=== PATIENT | female | born 1975 | race African-American/Black ===

== ENCOUNTER 2016-07-02 07:10 | Emergency (ER) | payer OTHER ==
[~2016-07-02] VITALS: Ht 165.1 cm; Wt 92.1 kg
[~2016-07-02 07:10] MED LIST: ATIVAN0.5 MG PO; TEMAZEPAM30 M1 PO; TENORMIN25 MG PO
[2016-07-02 07:28] VITALS: BP 133/78
--- NOTE | 2016-07-02 07:46 | NUR ---
40/F TO ED WITH C/O SOB AND CHEST PRESSURE STARTING LAST NIGHT. PT STATES SHE FEELS LIKE SHE CANT CATCH HER BREATH. LUNGS CLEAR BILAT. HR EVEN AND REGULAR. AAOX4. VSS. NO SIGNS OF DISTRESS.
[2016-07-02 08:24] VITALS: BP 129/77
== END 2016-07-02 08:23 | disposition home or self-care (01) ==
LOC: MED 07:10
DX: F41.9 Anxiety disorder, unspecified (principal); R07.9 Chest pain, unspecified; R06.02 Shortness of breath

== ENCOUNTER 2016-07-29 14:14 | Emergency (ER) | payer OTHER ==
[~2016-07-29] VITALS: Ht 165.1 cm; Wt 92.1 kg
[2016-07-29 14:26] VITALS: BP 126/79
--- NOTE | 2016-07-29 15:02 | NUR ---
patient taken to room #3
--- NOTE | 2016-07-29 15:10 | NUR ---
PT PRESENTS TO ER W/C/O DIARRHEA AND DARK COLORED STOOL SINCE LAST NOC. HX MIGRAINES, FIBROMYALGIA, ANXIETY, ULCERS, S/P GASTRIC BYPASS IN 2006. DENIES VOMITTING; SKIN IS PINK/WARM/DRY; AAOX4 WITH EVEN AND STEADY GAIT; LUNGS CLEAR BL; HR EVEN AND REGULAR; PT DENIES ANY FEVER, CP, SOB, OR COUGH AT THIS TIME; PATIENT STATES PAIN OF 9/10 AT THIS TIME; VSS; PATIENT POSITIONED FOR COMFORT; HOB ELEVATED; BEDRAILS UP X2; BED DOWN. ER MD MADE AWARE OF PT STATUS.
[2016-07-29] MEDS ORDERED: NACL 0.9% 1,000 ML IV ONE (15:20)
[2016-07-29] MEDS ORDERED: ONDANSETRON 4 MG/2 ML VIAL IVP ONE (15:20)
[2016-07-29] MEDS ORDERED: traMADol 50 MG TAB PO ONE (15:20)
[2016-07-29] MEDS ORDERED: fentaNYL 0.05 MG/ML VIAL IVP ONE (16:30)
[2016-07-29 16:57] VITALS: BP 121/71
--- NOTE | 2016-07-29 17:01 | NUR ---
Patient discharged with v/s stable. Written and verbal after care instructions given and explained. Patient alert, oriented and verbalized understanding of instructions. Ambulatory with steady gait. All questions addressed prior to discharge. ID band removed. Patient advised to follow up with PMD. Rx of ZOFRAN, TRAMADOL given. Patient educated on indication of medication including possible reaction and side effects. Opportunity to ask questions provided and answered.
== END 2016-07-29 17:01 | disposition home or self-care (01) ==
LOC: MED 14:14
DX: K52.9 Noninfective gastroenteritis and colitis, unspecified (principal); F41.9 Anxiety disorder, unspecified; Z88.6 Allergy status to analgesic agent
CPT/HCPCS: 36415; 80053; 85025; 85610; 85730; 96361; 96374; 96375; 99285; J2405; J3010; J7030

== ENCOUNTER 2017-02-23 05:52 | Emergency (ER) | payer SELFPAY ==
[~2017-02-23] VITALS: Ht 167.6 cm; Wt 83.9 kg
[~2017-02-23 05:52] MED LIST changes: +ATEN25TA7 PO; +ATI.5 PO; -ATIVAN0.5 MG PO; +TEMA30CA12 PO; -TEMAZEPAM30 M1 PO; -TENORMIN25 MG PO
[2017-02-23 05:57] VITALS: BP 115/74
--- NOTE | 2017-02-23 06:46 | NUR ---
PT TAKEN TO BED 8
[2017-02-23 07:18] LABS: BASOPHILS # (AUTO) 0.2 K/uL (0.00-0.22); BASOPHILS % (AUTO) 2.3 % (0.0-2.0); EOSINOPHILS # (AUTO) 0.1 K/uL (0-0.4); EOSINOPHILS % (AUTO) 0.9 % (0.0-4.0); HEMATOCRIT 39.8 % (36-48); HEMOGLOBIN 12.8 g/dL (12.0-16.0); LYMPHOCYTES # (AUTO) 1.1 K/uL (2.5-16.5); LYMPHOCYTES % (AUTO) 17.1 % (20.5-51.1); MEAN CORPUSCULAR HEMOGLOBIN 27 pg (27-31); MEAN CORPUSCULAR HGB CONC 32 g/dL (33-37); MEAN CORPUSCULAR VOLUME 84 fL (80-94); MONOCYTES # (AUTO) 0.4 K/uL (0.8-1.0); MONOCYTES % (AUTO) 5.9 % (1.7-9.3); NEUTROPHILS # (AUTO) 4.7 K/uL (1.8-7.7); NEUTROPHILS % (AUTO) 73.8 % (42.2-75.2); PLATELET COUNT (AUTO) 323 K/uL (140-450); RED BLOOD CELL COUNT(AUTO) 4.72 MIL/uL (4.20-5.40); RED CELL DISTRIBUTION WIDTH 19.7 % (11.6-13.7); WHITE BLOOD COUNT (AUTO) 6.5 K/uL (4.8-10.8)
--- NOTE | 2017-02-23 07:21 | NUR ---
PATIENT PRESENTS TO ED WITH EPIGASTRIC PAIN RADIATING MIDBACK WITH N/V . PT STATES . DENIES N/V/D; SKIN IS PINK/WARM/DRY; AAOX4 WITH EVEN AND STEADY GAIT; LUNGS CLEAR BL; HR EVEN AND REGULAR; PT DENIES ANY FEVER, CP, SOB, OR COUGH AT THIS TIME; PATIENT STATES PAIN OF 7/10 AT THIS TIME; VSS; PATIENT POSITIONED FOR COMFORT; HOB ELEVATED; BEDRAILS UP X2; BED DOWN. ER MD MADE AWARE OF PT STATUS.
[2017-02-23 07:31] LABS: ANION GAP 6.8 (8-16); CREATININE 0.8 mg/dL (0.6-1.3); POTASSIUM 3.8 mmol/L (3.5-5.1)
[2017-02-23 07:40] LABS: ALBUMIN 3.4 g/dL (3.4-5.0); TOTAL BILIRUBIN 0.3 mg/dL (0.0-1.0)
--- NOTE | 2017-02-23 07:48 | NUR ---
Dr. Moya evaluating patient at bedside.
[2017-02-23] MEDS ORDERED: DICYCLOMINE HCL LIQUID 20 MG, ALUMINUM HYD/MAG/SIMETHICONE 30 ML, LIDOCAINE VISCOUS 2% ... PO ONE ×3 (07:50)
--- NOTE | 2017-02-23 07:53 | NUR ---
vein access technician at bedside.
--- NOTE | 2017-02-23 07:57 | NUR ---
PT TO CT VIA WHEELCHAIR
--- NOTE | 2017-02-23 08:17 | NUR ---
RETURNED FROM CT
[2017-02-23] MEDS ORDERED: HYDROcodone/APAP 5/325 MG 1 TAB TAB PO ONE (08:40)
[2017-02-23 09:05] LABS: APPEARANCE,URINE HAZY (CLEAR); BILIRUBIN,URINE NEGATIVE (NEGATIVE); BLOOD, URINE NEGATIVE (NEGATIVE); COLOR,URINE YELLOW (YELLOW); LEUKOCYTE ESTERASE ,URINE 1+ (NEGATIVE); NITRITE, URINE NEGATIVE (NEGATIVE); UGLUCOSE NEGATIVE (NEGATIVE)
[2017-02-23 09:15] LABS: RBC,URINE NONE SEEN /HPF (0-5)
--- NOTE | 2017-02-23 09:27 | NUR ---
Patient discharged with v/s stable. Written and verbal after care instructions given and explained. Patient alert, oriented and verbalized understanding of instructions. Ambulatory with steady gait. All questions addressed prior to discharge. ID band removed. Patient advised to follow up with PMD. Rx of NEXIUM/NORCO given. Patient educated on indication of medication including possible reaction and side effects. Opportunity to ask questions provided and answered.
[2017-02-23 09:28] VITALS: BP 126/74
== END 2017-02-23 09:27 | disposition home or self-care (01) ==
LOC: MED 05:52
DX: R10.13 Epigastric pain (principal); R11.2 Nausea with vomiting, unspecified; R51 Headache; Z88.6 Allergy status to analgesic agent; I10 Essential (primary) hypertension; Z90.89 Acquired absence of other organs
CPT/HCPCS: 36415; 80053; 81001; 81025; 83690; 85025; 87086; 99285

== ENCOUNTER 2018-01-16 07:24 | Emergency (ER) | payer OTHER ==
[~2018-01-16] VITALS: Ht 165.1 cm; Wt 74.1 kg
[2018-01-16 07:39] VITALS: BP 112/84
--- NOTE | 2018-01-16 07:42 | NUR ---
PT AMBULATES TO BED 11
--- NOTE | 2018-01-16 07:48 | NUR ---
42 Y.O FEMALE CAME TO THE EMERGECY ROOM FOR ABD PAIN, N/V/D X2 DAYS. PT STATES THAT IT FEELS IF SOMETHING IS BURNING INSIDE AND RIPPING HER ABD APART. PT STATES THE PAIN IS IN THE EPIGASTRIC REGION, RADIATES TO THE SIDES AND LOWER BACK. PT STATES SHE HAD BLOOD IN HER STOOL YESTERDAY MORNING; THE BLOOD WAS DARK-RED IN COLOR. PT STATES THAT SHE WENT TO HER DR. WHO THROUGHT SHE HAD A VIRUS BUT THE PAIN HAS SINCE GOTTEN WORSE AND UNTOLERABLE. PT HAS BEEN TREATING HER S/SX WITH MALOXX BUT IT HAS NOT BEEN HELPING. UPON ASCULTATION ACTIVE BOWEL SOUNDS WERE HEARD IN ALL 4 QUADRANTS. ON PALPATION HER ABD IS SOFT, TENDER, NO MASSES PALPAPTED. UPON POSTIIVE FOR CVA TENDERNESS WITH SEARS'S PUNCH SIGN BILATERALLY. S1S2 PRESENT. LUNGS ARE CLEAR BILATERALLY. NO OTHER S/SX PRESENT. MEDICAL HX INCLUDES: 2006 GASTRIC BYPASS SURGERY 2014 DX WITH STOMACH ULCERS. TX WITH MEDICATION. NO S/SX SINCE. PT STATES THE PAIN SHE FEELS TODAY IS MUCH LIKE THE S/SX SHE HAD WHEN SHE HAD HER ULCER.
[2018-01-16] MEDS ORDERED: diphenhydrAMINE 50 MG/ML VIAL IM ONE (08:40)
[2018-01-16] MEDS ORDERED: ONDANSETRON 4 MG/2 ML VIAL IVP ONE (08:40)
[2018-01-16] MEDS ORDERED: ALUMINUM HYD/MAG/SIMETHICONE 30 ML, DICYCLOMINE HCL LIQUID 20 MG, LIDOCAINE VISCOUS 2% ... PO ONE ×3 (08:40)
[2018-01-16] MEDS ORDERED: PANTOPRAZOLE 40 MG TABEC PO ONE (08:40)
[2018-01-16] MEDS ORDERED: METOCLOPRAMIDE 10 MG/2 ML INJ VIAL IM ONE (08:40)
[2018-01-16 09:11] LABS: BASOPHILS % (AUTO) 0.4 % (0.0-2.0); EOSINOPHILS % (AUTO) 0.5 % (0.0-4.0); HEMATOCRIT 36.9 % (36-48); HEMOGLOBIN 11.9 g/dL (12.0-16.0); LYMPHOCYTES # (AUTO) 1.1 K/uL (2.5-16.5); LYMPHOCYTES % (AUTO) 14.4 % (20.5-51.1); MEAN CORPUSCULAR HEMOGLOBIN 28 pg (27-31); MEAN CORPUSCULAR HGB CONC 32 g/dL (33-37); MEAN CORPUSCULAR VOLUME 87.3 fL (80-94); MONOCYTES # (AUTO) 0.7 K/uL (0.8-1.0); MONOCYTES % (AUTO) 10.1 % (1.7-9.3); NEUTROPHILS # (AUTO) 5.5 K/uL (1.8-7.7); NEUTROPHILS % (AUTO) 74.6 % (42.2-75.2); PLATELET COUNT (AUTO) 329 K/uL (140-450); RED BLOOD CELL COUNT(AUTO) 4.23 MIL/uL (4.20-5.40); RED CELL DISTRIBUTION WIDTH 17.3 % (11.6-13.7); WHITE BLOOD COUNT (AUTO) 7.3 K/uL (4.8-10.8)
[2018-01-16 09:32] LABS: ANION GAP 10.3 (8-16); CARBON DIOXIDE 28.1 mmol/L (21-32); POTASSIUM 3.4 mmol/L (3.5-5.1)
[2018-01-16 09:38] LABS: TOTAL BILIRUBIN 0.3 mg/dL (0.0-1.0)
--- NOTE | 2018-01-16 10:30 | NUR ---
D/c pt home in personal vehicle. Pt ambualted to exit. pt states that she is feeling much better. D/c pt with new medication, Reglan, Tramadol, Omeprazole. Educated pt on medication and when to reutrn to ED, call 911, call /see Primary care dr. Pt denied further questions.
[2018-01-16 10:35] VITALS: BP 119/79
== END 2018-01-16 10:30 | disposition home or self-care (01) ==
LOC: MED 07:24
DX: R10.9 Unspecified abdominal pain (principal); Z88.6 Allergy status to analgesic agent
CPT/HCPCS: 80053; 83690; 85025; 96372; 96374; 99284; J1200; J2405; J2765

== ENCOUNTER 2018-05-23 21:30 | Inpatient (IN) | payer OTHER ==
[~2018-05-23] VITALS: Ht 170.2 cm; Wt 76.2 kg
[2018-05-23 21:30] VITALS: BP 131/88
--- NOTE | 2018-05-23 21:39 | NUR ---
BIB [facility] TO ER BED 10
--- NOTE | 2018-05-23 21:45 | NUR ---
42/F BIBA. PT REPORTS THAT SHE "POSSIBLY HAD A SEIZURE FROM WORK." PT REPORTS THAT SHE DOES NOT REMEMBER WHAT HAPPENED. PT REPORTS ONE EPISODE OF VOMITING. REPORTS 7/10 HEADACHE AT THIS TIME. PT AOX4, GCS 15, PERRLA, RR EVEN AND UNLABORED. +2 PERIPHRERAL STRENGHT. HX GASTRIC BYPASS, SZ (LAST 3 YEARS AGO), RX OMEPRAZOLE, TRAMADOL
[2018-05-23] MEDS ORDERED: MORPHINE SULFATE 4 MG/ML SYR IVP ONE (22:20)
[2018-05-23] MEDS ORDERED: NACL 0.9% 1,000 ML IV ONE (22:20)
[2018-05-23] MEDS ORDERED: ONDANSETRON 4 MG/2 ML VIAL IVP ONE (22:20)
[2018-05-23 23:17] LABS: BASOPHILS % (AUTO) 0.7 % (0.0-2.0); EOSINOPHILS # (AUTO) 0.1 K/uL (0-0.4); EOSINOPHILS % (AUTO) 0.8 % (0.0-4.0); HEMATOCRIT 31.4 % (36-48); HEMOGLOBIN 9.7 g/dL (12.0-16.0); LYMPHOCYTES % (AUTO) 14.8 % (20.5-51.1); MEAN CORPUSCULAR HEMOGLOBIN 25 pg (27-31); MEAN CORPUSCULAR HGB CONC 31 g/dL (33-37); MEAN CORPUSCULAR VOLUME 79.7 fL (80-94); MONOCYTES # (AUTO) 0.7 K/uL (0.8-1.0); MONOCYTES % (AUTO) 10.6 % (1.7-9.3); NEUTROPHILS # (AUTO) 4.8 K/uL (1.8-7.7); NEUTROPHILS % (AUTO) 73.1 % (42.2-75.2); PLATELET COUNT (AUTO) 341 K/uL (140-450); RED BLOOD CELL COUNT(AUTO) 3.94 MIL/uL (4.20-5.40); RED CELL DISTRIBUTION WIDTH 19.1 % (11.6-13.7); WHITE BLOOD COUNT (AUTO) 6.5 K/uL (4.8-10.8)
[2018-05-23 23:22] LABS: APPEARANCE,URINE CLOUDY (CLEAR); BILIRUBIN,URINE NEGATIVE (NEGATIVE); BLOOD, URINE 3+ (NEGATIVE); COLOR,URINE YELLOW (YELLOW); LEUKOCYTE ESTERASE ,URINE TRACE (NEGATIVE); NITRITE, URINE NEGATIVE (NEGATIVE); PH,URINE 5.5 (5.0-9.0); UGLUCOSE NEGATIVE (NEGATIVE)
[2018-05-23 23:41] LABS: BARBITURATE, URINE NEG. ng/ml (NEG <=200); BENZODIAZEPINE, URINE POS. ng/mL (NEG <=200); CANNABINOID, URINE POS. ng/mL (NEG <=50); COCAINE, URINE NEG. ng/mL (NEG <=300); OPIATE, URINE NEG. ng/mL (NEG <=2000); PHENCYCLIDINE SCREEN,URINE NEG. ng/mL (NEG <=25)
[2018-05-23 23:44] LABS: ACETAMINOPHEN < 0.5 ug/ml (10-30); ALBUMIN 3.1 g/dL (3.4-5.0); ANION GAP 8.9 (8-16); ASPARTATE AMINOTRANSFERASE 20 U/L (15-37); CARBON DIOXIDE 27.4 mmol/L (21-32); CHLORIDE 109 mmol/L (98-107); GLUCOSE 85 mg/dL (74-106); POTASSIUM 4.3 mmol/L (3.5-5.1); SALICYLATE 6.4 mg/dL (2.8-20.0); SODIUM SERUM 141 mmol/L (136-145); TOTAL BILIRUBIN 0.1 mg/dL (0.0-1.0); UREA NITROGEN, BLOOD 9 mg/dL (7-18)
[2018-05-23 23:47] LABS: CREATININE 0.7 mg/dL (0.6-1.3); GFR ARICAN-AMERICAN 117 mL/min (>90)
[2018-05-23 23:56] LABS: RBC,URINE TOO NUMEROUS TO COUN /HPF (0-5)
--- NOTE | 2018-05-24 | NUR ---
PT LAYING IN BED, RR EVEN AND UNLABORED.
[2018-05-24] MEDS ORDERED: MORPHINE SULFATE 4 MG/ML SYR IVP ONE (00:10)
[2018-05-24 00:18] LABS: CREATINE KINASE MB 1.9 ng/mL (0-3.6)
[2018-05-24] MEDS ORDERED: cefTRIAXone 1,000 MG VIAL ONE (00:40)
[2018-05-24] MEDS ORDERED: levETIRAcetam 1,000 MG in NACL 0.9% 100 ML IV ONE (01:00)
[2018-05-24] MEDS ORDERED: levETIRAcetam 100 MG/ML VIAL IV ONE (01:17)
--- NOTE | 2018-05-24 01:37 | NUR ---
Patient will be admitted to care of DR. GOEL. Admited to TELE. Will go to [id number]. Belongings list completed. Report to YOHANNES PARIKH.
--- NOTE | 2018-05-24 01:45 | NUR ---
PT ARRIVED AT UNIT VIA GURNEY, PT AMBULATED TO BED, TOLERATED WELL, RECEIVED BEDSIDE REPORT FROM ER NURSE JOSÉ LUIS RN, PT IN STABLE CONDITION, IV TO L AC 20G PATENT, INTACT, INFUSING KEPPRA, INFUSING WELL, PT ON ROOM AIR, NO SOB NOTED, MRSA SWAB TAKEN, V/S TAKEN, WNL, ORIENT PT TO ROOM BED, CALL LIGHT , PT STATED UNDERSTANDING, INITIAL ASSESSMENT DONE, ALL SAFETY PRECAUTION MET, CALL LIGHT WITHIN REACH, WILL CONTINUE TO MONITOR.
[2018-05-24 02:00] VITALS: BP 119/62
[2018-05-24] MEDS ORDERED: OMEP40EC14 PO (02:13)
[2018-05-24] MEDS ORDERED: TAM75 (02:13)
[2018-05-24] MEDS ORDERED: TRAM50TA1 PO (02:13)
[2018-05-24] MEDS ORDERED: ONDANSETRON 4 MG/2 ML VIAL IVP PRN (02:35)
[2018-05-24] MEDS ORDERED: LORazepam 0.5 MG TAB PO PRN ×2 (02:35→10:41)
[2018-05-24] MEDS ORDERED: ACETAMINOPHEN 325 MG TAB PO PRN (02:35)
--- NOTE | 2018-05-24 02:39 | NUR ---
TALKED TO DR. TORIBIO REGARDING ORDERS, STATED TO ORDER REGULAR DIET, KEPPRA 500MG PO BID, IVF NS @ 75ML/HR, ZOFRAN 4MG IVP Q6H PRN NAUSEA, TYLENOL 650MG PO Q6H FOR TEMP ABOVE 100.4, NORCO 5/325MG, PO Q6H PRN PAIN, ATIVAN BID PRN ANXIETY. AND TO CONTINUE HOME MEDICATION OMEPRAZOLE. WILL CONTINUE WITH ORDERS.
[2018-05-24] MEDS: NACL 0.9% 1,000 ML IV SCH ×2 (03:01→16:20)
[2018-05-24] MEDS: HYDROcodone/APAP 5/325 MG 1 TAB TAB PO PRN ×2 (03:02→16:56)
--- NOTE | 2018-05-24 03:02 | NUR ---
PAIN MEDICATION PER MD ORDER GIVEN TO PT, PT TOLERATED WELL, PT ALSO FEELING ANXIOUS AND UNABLE TO SLEEP, ATIVAN ORDERED FOR ANXIETY GIVEN, PT TOLERATED WELL, CALL LIGHT WITHIN REACH, WILL CONTINUE TO MONITOR.
--- NOTE | 2018-05-24 03:09 | NUR ---
GAVE PT PEANUT BUTTER SANDWICH TO EAT BECAUSE PT C/O FEELING HUNGRY, PT TOOK ONE BITE AND STATED IT MADE HER FEEL NAUSEOUS, ZOFRAN ORDERED ADMINISTERED, PT TOLERATED WELL, GAVE PT SOME MILK AND JUICE, PT TOLERATED WELL.
[2018-05-24 04:00] VITALS: BP 114/65
[2018-05-24] MEDS ORDERED: PNEUMOCOCCAL VACCINE 23 MCG/0.5 ML VIAL IMVAC PRN (05:00)
[2018-05-24] MEDS: PANTOPRAZOLE 40 MG TABEC PO SCH (06:27)
--- NOTE | 2018-05-24 07:12 | NUR ---
ENDORSED PT TO DAY SHIFT NURSE GENESIS [place], PT IN STABLE CONDITION, CALL LIGHT WITHIN REACH.
--- NOTE | 2018-05-24 07:13 | NUR ---
Received report from pm nurse Haydee. Pt awake, verbally responsive, no c/o discomfort, respirations even & nonlabored. Call light within reach. Right ac IV asymptomatic with ongoing NS @ 75ml/hr.
[2018-05-24 08:00] VITALS: BP 105/64
[2018-05-24] MEDS ORDERED: NON-FORMULARY ITEM (Omeprazole 1 CAP) PO SCH (09:00)
[2018-05-24] MEDS ORDERED: levETIRAcetam 500 MG TAB PO SCH (09:00)
--- NOTE | 2018-05-24 10:30 | NUR ---
Dr. Sandoval at bedside assessing pt. Pt in bed, respirations even & nonlabored, FLACC 0. Call light within reach.
[2018-05-24] MEDS ORDERED: TEMAZEPAM 15 MG CAP PO PRN (10:35)
--- NOTE | 2018-05-24 11:15 | NUR ---
Pt able to amb from bed to toilet for voiding with steady gait. Able to maneuver IV pole with good safety awareness. No c/o discomfort. Respirations even & nonlabored. Call light within reach.
[2018-05-24 12:00] VITALS: BP 113/75
--- NOTE | 2018-05-24 12:30 | NUR ---
Dr. Damon at bedside assessing pt.
--- NOTE | 2018-05-24 14:00 | NUR ---
Pt sitting up in bed, watching TV. No signs of distress. No c/o discomfort. Right ac IV intact & asymptomatic with ongoing NS @ 75ml/hr. Call light within reach.
[2018-05-24 16:00] VITALS: BP 108/68
--- NOTE | 2018-05-24 19:15 | NUR ---
Report given to pm nurse Haydee.
--- NOTE | 2018-05-24 19:16 | NUR ---
RECEIVED BEDSIDE REPORT FROM DAY SHIFT NURSE GENESIS RN, PT STABLE, NO DISTRESS NOTED, IV TO R AC 20G PATENT, INTACT, INFUSING NS @ 75ML/HR, INFUSING WELL, PT ON ROOM AIR, NO SOB NOTED, NO C/O PAIN AT THIS MOMENT, INITIAL ASSESSMENT DONE, ALL SAFETY PRECAUTION MET, CALL LIGHT WITHIN REACH, WILL CONTINUE TO MONITOR.
[2018-05-24 20:00] VITALS: BP 117/62
[2018-05-24] MEDS: levETIRAcetam 500 MG TAB PO SCH (20:48)
--- NOTE | 2018-05-24 21:06 | NUR ---
CALLED DR. TORIBIO REGARDING PT C/O PAIN 12/06, WHOLE BODY SORENESS. AND PT STATED THAT SHE USUALLY TAKES NORCO 10/325 AT HOME, STATED UNDERSTANDING, AND STATED THAT TO ORDER NORCO PO 10/325MG Q4H, WILL PUT IN ORDERS AND CONTINUE WITH ORDERS.
[2018-05-24] MEDS: HYDROcodone/APAP 10/325 MG 1 TAB TAB PO PRN (21:17)
--- NOTE | 2018-05-24 21:17 | NUR ---
PAIN MEDICATION PER MD ORDER ADMINISTERED, PT TOLERATED WELL, NO DISTRESS NOTED, PT ALSO C/O UNABLE TO SLEEP, INSOMNIA MEDICATION ADMINISTERED, PT TOLERATED WELL, NO DISTRESS NOTED, CALL LIGHT WITHIN REACH, WILL CONTINUE TO MONITOR.
--- NOTE | 2018-05-24 21:20 | NUR ---
PT COMPLAINED THAT HER IV KEEPS BEEPING AND THAT SHE CAN NOT BEND HER ARM, NEW IV INSERTED TO R FA 22G PATENT, INTACT, INFUSING WELL, PT TOLERATED WELL.
--- NOTE | 2018-05-24 23:55 | NUR ---
CHECKED ON PT, PT RESTING ON BED, NO DISTRESS NOTED, V/S TAKEN, WNL, CALL LIGHT WITHIN REACH, WILL CONTINUE TO MONITOR.
[2018-05-25] VITALS: BP 111/66
[2018-05-25] MEDS: NACL 0.9% 1,000 ML IV SCH (02:31)
[2018-05-25 04:00] VITALS: BP 110/51
--- NOTE | 2018-05-25 04:11 | NUR ---
CHECKED ON PT, PT SLEEPING, V/S TAKEN, WNL, CALL LIGHT WITHIN REACH, WILL CONTINUE TO MONITOR.
[2018-05-25] MEDS: PANTOPRAZOLE 40 MG TABEC PO SCH (06:13)
--- NOTE | 2018-05-25 06:25 | NUR ---
PATIENT HAS BEEN SCREENED AND CATEGORIZED HIGH NUTRITION RISK. PATIENT WILL BE SEEN WITHIN 1-2 DAYS OF ADMISSION. 05/24/18-05/25/18 LOGAN EVANS MS, RDN
--- NOTE | 2018-05-25 07:16 | NUR ---
ENDORSED PT PT TO DAY SHIFT NURSE GENESIS RN, PT IN STABLE CONDITION NO DISTRESS NOTED. CALL LIGHT WITHIN REACH.
--- NOTE | 2018-05-25 07:17 | NUR ---
Received report from pm nurse Haydee. Pt awake, verbally responsive, no signs of distress. Call light within reach. Right forearm IV intact & asymptomatic with ongoing NS @ 75ml/hr.
[2018-05-25 08:00] VITALS: BP 111/68
[2018-05-25] MEDS: levETIRAcetam 500 MG TAB PO SCH (08:37)
[2018-05-25] MEDS: ATENOLOL 25 MG TAB PO SCH ×2 (08:40→08:42)
[2018-05-25] MEDS ORDERED: LEVE750T3 PO (08:41)
--- NOTE | 2018-05-25 09:56 | NUR ---
05/25/18 RD INITIAL ASSESSMENT COMPLETED PLEASE REFER TO NUTRITION ASSESSMENT UNDER CARE ACTIVITY FOR ESTIMATED NUTRITIONAL NEEDS. RD RECOMMENDATIONS: 1. CONTINUE ON REGULAR DIET TOLERATED. 2. RDN TO ADD HEALTH SHAKES 6-OZ WITH MEALS TID TO HELP MEET PROTEIN/ENERGY NEEDS. 3. RD WILL F/U 3-5 DAYS; MODERATE RISK. LOGAN EVANS MS, RDN
[2018-05-25] MEDS: HYDROcodone/APAP 10/325 MG 1 TAB TAB PO PRN (10:00)
--- NOTE | 2018-05-25 11:30 | NUR ---
Written & verbal discharge instructions provided to pt. Pt verbalized understanding & agree with discharge plans. Right ac & right forearm IV discontinued.
--- NOTE | 2018-05-25 12:10 | NUR ---
Discharged pt at this time to home. Left unit via wheelchair with RN, son Rui waiting in front lobby with private car. Pt able to amb from wheelchair to car with steady gait, no c/o discomfort, no signs of distress. Name band removed. All belongings with pt upon departure.
== END 2018-05-25 12:10 | disposition home or self-care (01) | DRG 53 ==
LOC: MED 21:30 → MTU 05-24 01:05
PROVIDERS: ADMIT Internal Medicine; ATTEND Internal Medicine
DX: R56.9 Unspecified convulsions (principal); M50.20 Other cervical disc displacement, unspecified cervical region; N39.0 Urinary tract infection, site not specified; D64.9 Anemia, unspecified; I10 Essential (primary) hypertension; K21.9 Gastro-esophageal reflux disease without esophagitis; F12.90 Cannabis use, unspecified, uncomplicated; F41.9 Anxiety disorder, unspecified; F17.210 Nicotine dependence, cigarettes, uncomplicated; G89.29 Other chronic pain; F13.90 Sedative, hypnotic, or anxiolytic use, unspecified, uncomplicated; Z88.6 Allergy status to analgesic agent; Z79.899 Other long term (current) drug therapy; Z90.49 Acquired absence of other specified parts of digestive tract
CPT/HCPCS: 36415; 70450; 71045; 80053; 80305; 81001; 81025; 82550; 82553; 84484; 85025; 87081; 87086; 93005; 96365; 96375; 99285; G0480; G0482; J0696; J1953; J2270; J2405; J7030; J7060; Q0092